=== PATIENT | female | born 1990 | race Asian ===

== ENCOUNTER 2018-07-02 08:53 | Emergency (ER) | payer MEDICAID ==
[~2018-07-02] VITALS: Ht 154.9 cm; Wt 48.6 kg
[2018-07-02 12:38] LABS: BASOPHILS % (AUTO) 0.1 % (0-1); EOSINOPHILS # (AUTO) 0.1 X10'3 (0-0.9); EOSINOPHILS % (AUTO) 0.4 % (0-6); HEMATOCRIT 41.6 % (35.0-45.0); HEMOGLOBIN 13.8 g/dl (12.0-16.0); LYMPHOCYTES # (AUTO) 0.7 X10'3 (1.1-4.8); LYMPHOCYTES % (AUTO) 3.7 % (21-51); MEAN CORPUSCULAR HEMOGLOBIN 25.4 PG (27.0-31.0); MEAN CORPUSCULAR HGB CONC 33.2 g/dL (33.0-36.5); MEAN CORPUSCULAR VOLUME 76.5 FL (78-98); MEAN PLATELET VOLUME 7.7 FL (7.4-10.4); MONOCYTES # (AUTO) 0.9 X10'3 (0-0.9); MONOCYTES % (AUTO) 4.7 % (2-12); NEUTROPHILS # (AUTO) 17.1 X10'3 (1.8-7.7); NEUTROPHILS % (AUTO) 91.1 % (42-75); PLATELET COUNT 361 X10'3 (140-440); RED BLOOD COUNT 5.44 X10'6 (4.20-5.60); RED CELL DISTRIBUTION WIDTH 15.7 % (11.5-14.5); WHITE BLOOD COUNT 18.8 X10'3 (4.5-11.0)
[2018-07-02 12:57] LABS: ALANINE AMINOTRANSFERASE 15 U/L (12-78); ALBUMIN 4.3 G/DL (3.4-5.0); ALBUMIN/GLOBULIN RATIO 0.9 (1.1-1.5); ALKALINE PHOSPHATASE 68 IU/L (46-116); ANION GAP 13 (8-16); ASPARTATE AMINO TRANSFERASE 20 U/L (10-37); BILIRUBIN,TOTAL 0.6 MG/DL (0.1-1.0); BLOOD UREA NITROGEN 9 MG/DL (7-18); BUN/CREATININE RATIO 11.5 (6.6-38.0); CALCIUM 9.3 MG/DL (8.5-10.1); CHLORIDE 99 MMOL/L (99-107); CREATININE 0.78 MG/DL (0.40-0.90); GLUCOSE 108 MG/DL (70-104); POTASSIUM 3.6 MMOL/L (3.5-5.1); SODIUM 135 MMOL/L (135-145); TOTAL CARBON DIOXIDE 22.6 MMOL/L (24-32); eGFR 89 ML/MIN
[2018-07-02] MEDS ORDERED: azithromycin 250mg tablet PO ONE (13:00)
[2018-07-02] MEDS ORDERED: ipratropium/albuterol 3ml nebule NEB ONE (13:00)
[2018-07-02 14:26] VITALS: BP 125/79
--- NOTE | 2018-07-02 14:30 | NUR ---
PER JOVANNY STEVE'S REQUEST, I GAIT TESTED PT APPROX 250 FT WITH PULSE OX MONITORING. PT'S O2 SAT DECREASED FROM 91% TO 87-88%. PT STATED THAT SHE FELT FINE. REPORTED RESULTS OF GAIT TEST AND A REPEAT SET OF VITALS TO DR. STEVE.
[2018-07-02] MEDS ORDERED: albuterol 2.5 mg/0.5ml nebule NEB ONE (15:05)
[2018-07-02] MEDS ORDERED: albuterol 2.5 MG/3 ML nebule ONE (16:02)
[2018-07-02] MEDS ORDERED: INHA1INH2 (16:34)
[2018-07-02] MEDS ORDERED: AZIT-63 PO (16:34)
[2018-07-02] MEDS ORDERED: ALBU18HF2 INH (16:34)
[2018-07-02] MEDS ORDERED: predniSONE 20 mg tablet PO ONE (16:35)
== END 2018-07-02 17:14 | disposition home or self-care (01) ==
LOC: ER 08:53
DX: J18.9 Pneumonia, unspecified organism (principal); J98.01 Acute bronchospasm; F12.90 Cannabis use, unspecified, uncomplicated; Z79.899 Other long term (current) drug therapy
CPT/HCPCS: 36415; 71045; 80053; 83605; 85025; 87502; 87503; 94640; 94760; 99284; J7512; J7611